=== PATIENT | female | born 1955 | race Caucasian/White ===

== ENCOUNTER 2024-04-12 11:23 | Outpatient (RCR) | payer MEDICARE, SELFPAY | END 2024-04-12 19:00 | disposition home or self-care (01) | LOC: PT 11:23 | DX: R10.2 Pelvic and perineal pain (principal); N94.819 Vulvodynia, unspecified; N95.2 Postmenopausal atrophic vaginitis; Z78.0 Asymptomatic menopausal state; L90.0 Lichen sclerosus et atrophicus ==